=== PATIENT | male | born 1995 | race Caucasian/White ===

== ENCOUNTER 2019-10-14 12:03 | Emergency (ER) | payer OTHER, SELFPAY ==
[2019-10-14 12:07] VITALS: BP 133/87; PULSE 96; RESP 16; TEMP 36.8; O2SAT 96; BMI 26.8
--- NOTE | 2019-10-14 12:39 | HMH.EDMCLR ---
ED Disposition Clinical Impression: Encounter for medical clearance for patient hold Disposition: Home, Self-Care Condition on Discharge: Good Referrals: Provider,Referral, [Primary Care Provider] - - Critical Care Critical Care Time: No Attestation: On 10/14/19, the high probability of a clinically significant, sudden or life threatening deterioration of the following system(s) required my full and direct attention, intervention and personal management. The time I documented below is in addition to time spent performing reported procedures but includes the following listed in this critical care notation. Medical Decision Making - Medical Records Medical records reviewed: Yes: I reviewed the patient's medical records. - Preston Inquiry Pt receiving controlled substance: No Vital Signs: 10/14/19 12:07 Temperature 98.2 F Temperature Source Oral Pulse Rate [Right Radial] 96 H Respiratory Rate 16 Blood Pressure [Right Arm] 133/87 Blood Pressure Mean [Right Arm] 102 Blood Pressure Source [Right Arm] Automatic Cuff Blood Pressure Position [Right Arm] Sitting 02 Sat by Pulse Oximetry 96 Oxygen Delivery Method Room Air Medical Clearance HPI - General Chief complaint: Medical Clearance Stated complaint: medical clearance Time Seen by Provider: 10/14/19 12:39 Mode of Arrival: Ambulatory Source of Information: Patient Description of Symptoms (Recalled from ER Triage Doc. 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 - History of Present Illness HPI Narrative: 24-year-old male presents the ED with no chronic health problems and no acute issues he is here for medical clearance to go to the [facility]. Home medications: Home Medications Medication Instructions Recorded Confirmed No Known Home Medications 10/14/19 10/14/19 Allergies/Adverse reactions: Allergies Allergy/AdvReac Type Severity Reaction Status Date / Time No Known Allergies Allergy Verified 11/27/18 00:44 [facility] History - Hepatitis A Screen Drug use history?: No High risk sexual behaviors?: No History of sexually transmitted infection?: No Currently employed?: No Childcare worker?: No Do you have indoor plumbing?: Yes Do you have electricity?: Yes Attestation statement:: This patient has been screened for Hepatitis A risk factors. I have reviewed the patient's past medical history: Yes Medical History: Denies:: Cancer, Diabetes Mellitus Type 1, Diabetes Mellitus Type 2, MRSA Laterality Cases: Right: Arthroscopy Shoulder, Other Amputation: No Fractures: No - Social History Smoking Status: Current some day smoker Tobacco Type: smokeless tobacco # Packs/Day (cigarettes): 0 Alcohol Intake: current Alcohol Intake Frequency:: a few times a week Occupational Status: other ROS Obtained: Yes All systems reviewed & no additional complaints - Constitutional Constitutional: Reports system reviewed and no additional complaints, except as docu - Eyes Eyes: Reports system reviewed and no additional complaints, except as docu - ENT Ears, Nose, Mouth, and Throat: Reports system reviewed and no additional complaints, except as docu - Cardiovascular Cardiovascular: Reports system reviewed and no additional complaints, except as docu - Respiratory Respiratory: Yes system reviewed and no additional complaints, except as docu - Gastrointestinal Gastrointestingal: Reports: system reviewed and no additional complaints, except as docu - Genitourinary Male Genitourinary: Reports system reviewed and no additional complaints, except as docu Female Genitourinary: Reports system reviewed and no additional complaints, except as docu - Musculoskeletal Musculoskeletal: Reports system reviewed and no additional complaints, except as docu - Integumentary/Breasts Skin/Breast: Reports system reviewed and no additional complaints, except as docu - Neurologic Neurologic: Reports system reviewed and
[2019-10-14 12:49] VITALS: BP 133/87; PULSE 96; RESP 16; TEMP 36.8; O2SAT 96
== END 2019-10-14 12:50 ==
PROVIDERS: Emergency Provider Family Medicine
DX: F10.10 Alcohol abuse, uncomplicated (principal); F17.290 Nicotine dependence, other tobacco product, uncomplicated
CPT/HCPCS: 99282

== ENCOUNTER 2019-12-15 14:03 | Emergency (ER) | payer OTHER, SELFPAY ==
[2019-12-15 14:25] VITALS: BP 102/82; PULSE 112; RESP 23; O2SAT 98; BMI 23.7
--- NOTE | 2019-12-15 14:28 | PC.NURSE ---
PATIENT REQUESTED TO BE SEEN IN ER D/T INCREASED PAIN LEVELS
[2019-12-15 14:30] VITALS: BP 102/82; PULSE 112; RESP 24; TEMP 36.7; O2SAT 98; BMI 32.7
[2019-12-15 15:07] VITALS: BP 145/76; PULSE 110; RESP 22; O2SAT 99
--- NOTE | 2019-12-15 15:08 | XR_ITS ---
PROCEDURE: XR COCCYX 2V CLINICAL INDICATION: trauma Pain COMPARISON: No exams were available for comparison FINDINGS: No fracture or dislocation. No lytic or blastic change. There is normal mineralization. The joint spaces are well-preserved. No significant degenerative/arthritic changes. No erosive changes evident. Other findings:None. IMPRESSION: No acute findings. Dictated by: Jayme Torres MD 12/15/2019 15:50 Electronically signed by Jayme Torres MD in [place] 12/15/2019 15:50
--- NOTE | 2019-12-15 15:08 | XR_ITS ---
PROCEDURE: XR PELVIS 1-2V CLINICAL INDICATION: trauma Pain COMPARISON: Pelvis from 11/27/2018 TECHNIQUE: XR Pelvis AP View FINDINGS: No fracture or dislocation is evident. No significant degenerative change. No lytic or blastic change. IMPRESSION: No acute findings. Dictated by: Jayme Torres MD 12/15/2019 17:05 Electronically signed by Jayme Torres MD in [place] 12/15/2019 17:05
--- NOTE | 2019-12-15 15:18 | PC.NURSE ---
PT WITH RAD AT THIS TIME
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
[2019-12-15 16:00] VITALS: BP 111/66; PULSE 89; RESP 20; O2SAT 98
[2019-12-15 16:28] VITALS: BP 110/60; PULSE 70; RESP 16; TEMP 36.9; O2SAT 98
== END 2019-12-15 16:30 | disposition home or self-care (01) ==
PROVIDERS: Emergency Provider Emergency Medicine
DX: S30.810A Abrasion of lower back and pelvis, initial encounter (principal); S70.311A Abrasion, right thigh, initial encounter; V29.3XXA Motorcycle rider (driver) (passenger) injured in unspecified nontraffic accident, initial encounter; Y92.89 Other specified places as the place of occurrence of the external cause; F17.210 Nicotine dependence, cigarettes, uncomplicated
CPT/HCPCS: 72170; 72220; 96372; 99282

== ENCOUNTER 2020-03-09 05:14 | Emergency (ER) | payer OTHER, SELFPAY ==
[2020-03-09 05:21] VITALS: BP 142/88; PULSE 95; RESP 18; TEMP 36.6; O2SAT 95; BMI 25.7
--- NOTE | 2020-03-09 05:37 | CT_ITS ---
PROCEDURE: CT ABDOMEN W CON CLINICAL HISTORY: hematemesis COMPARISON: No exams were available for comparison TECHNIQUE: Axial images obtained with sagittal and coronal reformats. All CT scans at the facility use one or more dose reduction, viz: automated exposure control, ma/kV adjustment per patient size (including targeted exams where dose is matched to indication, i.e. head), or iterative reconstruction technique. IV and oral contrast was given. FINDINGS: The lower lung carpenter are clear and there is no pleural fluid. Cardiac size is normal. There is mild diffuse wall thickening of the distal esophagus just at and above the gastroesophageal junction probably due to esophagitis. The stomach appears grossly normal. The small bowel is unremarkable. There is moderate scattered stool and gas seen in the ascending and transverse colon and descending and upper sigmoid colon. There are accentuated haustra folds in the visualized portion of the sigmoid colon suggesting mild pre diverticular changes. IMPRESSION: Thickened wall of the distal esophagus consistent with esophagitis, no other significant abdominal pathology identified Dictated by: Dr. Patrice French MD 03/09/2020 09:29 Dr. Patrice French MD in [place] 03/09/2020 09:29
--- NOTE | 2020-03-09 05:45 | HMH.EDNVD ---
ED Disposition Clinical Impression: Esophagitis, Alcohol use disorder, Cocaine use Disposition: Home, Self-Care Condition on Discharge: Good Instructions: DI for Nausea -- Adult Additional Instructions: use meds and call pcp for follow up and possible egd - and discuss etoh and drug use Prescriptions: Pantoprazole Sodium [Protonix 40mg tablet] 40 mg PO HS #30 tab Transmission Status: Pending to [id number] Referrals: Anders Sauceda MD [Primary Care Provider] - - Critical Care Critical Care Time: No Attestation: On 03/09/20, the high probability of a clinically significant, sudden or life threatening deterioration of the following system(s) required my full and direct attention, intervention and personal management. The time I documented below is in addition to time spent performing reported procedures but includes the following listed in this critical care notation. Medical Decision Making - Medical Records Medical records reviewed: Yes: I reviewed the patient's medical records. - Preston Inquiry Pt receiving controlled substance: No Vital Signs: 03/09/20 05:21 Temperature 97.9 F Temperature Source Oral Pulse Rate [Right Brachial] 95 H Respiratory Rate 18 Blood Pressure [Left Arm] 142/88 H Blood Pressure Mean [Left Arm] 106 Blood Pressure Source [Left Arm] Automatic Cuff Blood Pressure Position [Left Arm] Sitting 02 Sat by Pulse Oximetry 95 Oxygen Delivery Method Room Air - Lab Data Lab results reviewed: Yes: I reviewed the patient's lab results. Lab Results 03/09/20 05:31: Urine Color Yellow, Urine Appearance Clear, Urine pH 6.0, Ur Specific [place] 1.015, Urine Protein Negative, Urine Glucose (UA) Negative, Urine Ketones Negative, Urine Blood Negative, Urine Nitrate Negative, Urine Bilirubin Negative, Urine Urobilinogen 0.2, Ur Leukocyte Esterase Negative, Urine WBC Occasional, Ur Squamous Epith Cells Occasional, Urine Mucus 1+ 03/09/20 05:31: WBC 10.3, RBC 5.55, Hgb 17.9, Hct 50.1, MCV 90.2, MCH 32.3 H, MCHC 35.8 H, RDW 13.3, Plt Count 340, MPV 6.9 L, Neut % (Auto) 60.5, Lymph % (Auto) 27.0, [place] % (Auto) 7.2, Eos % (Auto) 3.9, Baso % (Auto) 1.4, Neut # (Auto) 6.3, Lymph # (Auto) 2.8, [place] # (Auto) 0.7, Eos # (Auto) 0.4, Baso # (Auto) 0.1, ESR 2 03/09/20 05:31: Sodium 145, Potassium 4.4, Chloride 103, Carbon Dioxide 31 H, Anion Gap 15.4 H, BUN 10, Creatinine 1.00, Estimated Creat Clear 140, Estimated GFR 93, Est GFR ( Amer) 112, Glucose 120 H, Calcium 9.5, Total Bilirubin 0.4, AST 65 H, ALT 38, Alkaline Phosphatase 88, C-Reactive Protein 0.4, Total Protein 7.9, Albumin 4.8, Globulin 3.1, Albumin/Globulin Ratio 1.5, Amylase 102, Lipase 150 03/09/20 05:31: Urine Opiates Screen Negative, Urine Methadone Screen Negative, Ur Barbituates Screen Negative, Ur Phencyclidine Scrn Negative, Ur Amphetamines Screen Negative, U Benzodiazepines Scrn Negative, Urine Cocaine Screen Positive H, U Marijuana (THC) Screen Negative 03/09/20 05:31: Plasma/Serum Alcohol 192 H Result diagrams: 03/09/20 05:31 03/09/20 05:31 Orders (Tests/Meds): ED MEDICATIONS Generic Name Dose Route Start Last Admin Trade Name Freq PRN Reason Stop Dose Admin Sodium Chloride 1,000 mls @ 999 mls/hr 03/09/20 05:45 03/09/20 06:39 Sod Chlor 0.9% 1000ml Bag IV 03/09/20 06:45 999 mls/hr .Q1H1M PERRY Administration Sodium Chloride 1,000 mls @ 999 mls/hr 03/09/20 06:45 03/09/20 06:46 Sod Chlor 0.9% 1000ml Bag IV 03/09/20 07:45 999 mls/hr .Q1H1M PERRY Administration Sodium Chloride 10 ml 03/09/20 05:37 03/09/20 06:38 Sodium Chloride 0.9% 10ml Vial IV 04/08/20 05:36 10 ml NEEDED PRN Administration dilute protonix Discontinued Medications Generic Name Dose Route Start Last Admin Trade Name Freq PRN Reason Stop Dose Admin Diatrizoate Meglum/Diatrizoate Sod 30 ml 03/09/20 05:37 03/09/20 06:38 Diatrizoate Haylie 66% & Diatrizoate Na 10% 30ml Udc PO 03/09/20 05:38 30 ml ONCE ONE
[2020-03-09 05:46] LABS: Microscopic, Urine URINE MICROSCOPIC (MICROSCOPIC)
[2020-03-09 05:49] LABS: Basophils # 0.1 K/mm3 (0-0.2); Basophils % 1.4 % (0.1-2.0); Eosinophils # 0.4 K/mm3 (0.0-0.4); Eosinophils % 3.9 % (0.1-12.0); Hematocrit 50.1 % (42.0-52.0); Hemoglobin 17.9 g/dL (14.1-18.0); Lymphocytes # 2.8 K/mm3 (0.7-4.5); Mean Corpuscular HGB Conc 35.8 g/dL (31.8-35.4); Mean Corpuscular Hemoglobin 32.3 pg (27.0-31.2); Mean Corpuscular Volume 90.2 fl (80-94); Mean Platelet Volume 6.9 fl (7.4-10.4); Monocytes # 0.7 K/mm3 (0.1-1.0); Monocytes % 7.2 % (1.7-9.3); Neutrophils # 6.3 K/mm3 (1.8-7.8); Neutrophils % 60.5 % (37.0-80.0); Platelet Count 340 K/mm3 (142-424); Red Blood Count 5.55 M/mm3 (4.60-6.20); Red Cell Distribution Width 13.3 % (11.5-17.5); White Blood Count 10.3 K/mm3 (4.8-10.8)
[2020-03-09 05:52] LABS: Appearance,Urine CLEAR (Clear); Bilirubin,Urine Negative (Negative); Blood, Urine Negative (Negative); Color,Urine YELLOW (Yellow); Glucose,Urine (UA) Negative (Negative); Ketones,Urine Negative (Negative); Leukocyte Esterase,Urine Negative (Negative); Nitrate,Urine Negative (Negative); Protein,Urine Negative (Negative); Specific Gravity, Urine 1.015 (1.005-1.030); Urobilinogen,Urine 0.2 EU/dl (0.2)
[2020-03-09 06:00] LABS: Mucus,Urine 1+ /lpf; Squamous Epithelial Cell,Urine Occasional #/hpf (0-5); WBC,Urine Occasional #/hpf (0-3)
[2020-03-09 06:03] LABS: Alanine Aminotransferase 38 U/L (12-78); Albumin Level 4.8 g/dl (3.5-5.0); Albumin/Globulin Ratio 1.5 (1.1-1.8); Alkaline Phosphatase 88 U/L (38-126); Amylase 102 U/L (30-110); Anion Gap 15.4 mEq/L (5-15); Aspartate Amino Transferase 65 U/L (17-59); Bilirubin,Total 0.4 mg/dl (0.2-1.3); Blood Urea Nitrogen 10 mg/dl (9-20); Calcium 9.5 mg/dl (8.4-10.2); Carbon Dioxide 31 mmol/L (22.0-30.0); Chloride 103 mmol/L (98-107); Creatinine Clearance Estimated 140 mL/min (50-200); Estimated Glomerular Filt Rate 93 ml/min (>60); GFR (African American) 112 ML/MIN (>60); Globulin 3.1 g/dL (1.3-3.2); Glucose 120 mg/dl (74-100); Lipase 150 U/L (23-300); Potassium 4.4 mmoL/L (3.5-5.1); Sodium 145 mmol/L (136-145); Total Protein,Serum 7.9 g/dl (6.3-8.2)
[2020-03-09 06:05] LABS: Ethyl Alcohol 192 mg/dl (0-10)
[2020-03-09 06:06] LABS: Barbiturates Screen,Urine Negative ng/ml (<200); Benzodiazepines Screen,Urine Negative ng/ml (<200)
[2020-03-09 06:07] LABS: Amphetamine/Metha Screen,Urine Negative ng/ml (<1000)
[2020-03-09 06:08] LABS: Cocaine Screen,Urine Positive ng/ml (<300); Methadone Screen,Urine Negative ng/ml (<300)
[2020-03-09 06:09] LABS: C-Reactive Protein 0.4 mg/L (0-4); Cannabinoid Screen,Urine Negative ng/ml (<50)
[2020-03-09 06:10] LABS: Opiate Screen,Urine Negative ng/ml (<300); Phencyclidine Screen,Urine Negative ng/ml (<25)
[2020-03-09 06:15] LABS: Erythrocyte Sedimentation Rate 2 mm/hr (0-15)
[2020-03-09 08:15] VITALS: BP 122/87; PULSE 87; RESP 18; TEMP 36.8; O2SAT 100
== END 2020-03-09 08:18 | disposition home or self-care (01) ==
PROVIDERS: Emergency Provider Emergency Medicine; PCP Family Medicine
DX: K20.90 Esophagitis, unspecified without bleeding (principal); F10.10 Alcohol abuse, uncomplicated; F14.90 Cocaine use, unspecified, uncomplicated; Y90.6 Blood alcohol level of 120-199 mg/100 ml; F17.210 Nicotine dependence, cigarettes, uncomplicated
CPT/HCPCS: 74160; 80053; 80305; 81001; 82150; 83690; 85025; 85651; 86140; 96365; 96366; 96375; 99283; J2405; Q9967

== ENCOUNTER → 2021-06-30 12:38 | Outpatient (CLI) | payer OTHER, SELFPAY | PROVIDERS: Visit Provider Nurse Practitioner | DX: Z20.822 Contact with and (suspected) exposure to COVID-19 (principal) | CPT/HCPCS: C9803; U0003; U0005 ==